=== PATIENT | female | born 1970 | race Caucasian/White ===

== ENCOUNTER 2016-12-16 08:34 | Day surgery (SDC) | payer OTHER ==
--- NOTE | 2016-12-15 17:24 | PCM.PREANE ---
Preanesthetic Assessment - ANESTHESIA/TRANSFUSION/FAMILY HX Anesthesia/Transfusion History: Prior Anesthesia Other Type of Anesthesia Reaction Comment: has problems with N/V post anesthesia Family History of Anesthesia Reaction: No Intubation History: Unknown Additional History: Hives, airway compromise with recent intra-articular injection of contrast i.e. allergy to iodinated contrast material. Symtom of rapid heart beat was with local anesthetic by dentist and most likely was epinephrine. - REVIEW OF SYSTEMS Constitutional: Reports: no symptoms, feeling ill (pain left hip) DIAGNOSTIC IMAGING MANAGER: Reports: no symptoms Respiratory: Reports: no symptoms Cardiovascular: Reports: no symptoms GI: Reports: no symptoms Other: Reports: none - PHYSICAL ASSESSMENT Height: 5 ft 3 in Weight: 160 lb ASA Class: 2 Mental Status: alert & oriented x3 Airway Class: Mallampati = 3 Dentition: Reports: normal dentition Thyro-Mental Finger Breadths: 3 Mouth Opening Finger Breadths: 3 ROM/Head Extension: full Respiratory Status: lungs clear to auscultation bilaterally Cardiovascular Status: regular rate & rhythm, normal S1, S2, no murmur, blood pressure WNL - ALLERGIES Allergies/Adverse Reactions: Allergies Allergy/AdvReac Type Severity Reaction Status Date / Time ephedrine Allergy Tachycardia Verified 07/08/16 12:56 iodine Allergy throat Verified 12/14/16 15:00 swells steri strips Allergy Rash Uncoded 12/14/16 15:00 - BLOOD Blood Available: No - ANESTHESIA PLAN Free Text/Narrative:: Scopalomine patch for post op nausea (requested). Preop Beta Blas: No Anesthesia Type Planned: general anesthesia (LMA) - ACKNOWLEDGEMENTS Pt an appropriate candidate for the planned anesthesia: Yes Alternatives and risks of anesthesia discussed w pt/guardian: Yes Pt/Guardian understands and agree with anesthesia plan: Yes PreAnesthesia Questionnaire Gastrointestinal History: Reports: Irritable bowel syndrome Musculoskeletal History: Reports: Fracture Other Musculoskeletal History: left ankle fx Neurological History: Reports: Migraines Other Neuro History: "seasonal migraines" - Past Surgical History Head Surgeries/Procedures: Reports: None Female Surgical History: Reports: Hysterectomy Musculoskeletal Surgical History: Reports: Hip replacement Other Musculoskeletal Surgeries/Procedures:: left total hip replacement, revision of left total hip - SUBSTANCE USE Smoking Status *Q: Never Smoker Recreational Drug Use History: No - HOME MEDS Home Medications: Home Meds . [No Known Home Meds] 12/14/16 [History]
[~2016-12-16 08:34] MED LIST: ceFAZolin 2 GM in Premix Bag 1 BAG IV ONE
[2016-12-16] MEDS ORDERED: Propofol 200 MG/20 ML SDV ONE (08:58)
[2016-12-16] MEDS ORDERED: fentaNYL 100 MCG/2 ML SDV ONE ×2 (08:58→11:02)
[2016-12-16] MEDS ORDERED: Lidocaine 2% 5 ML SDV ONE (08:58)
[2016-12-16] MEDS ORDERED: Midazolam 1 MG/ML 2 ML SDV ONE (08:58)
[2016-12-16] MEDS ORDERED: Scopolamine 1.5 MG Transdermal Patch TRDERM PRN (09:24)
[2016-12-16] MEDS ORDERED: Lactated Ringers 1,000 ML IV SCH (11:00)
[2016-12-16] MEDS ORDERED: fentaNYL 100 MCG/2 ML SDV IVPUSH PRN (11:07)
[2016-12-16] MEDS ORDERED: Bupivacaine 0.5% 30 ML SDV ONE (11:09)
[2016-12-16] MEDS ORDERED: Ondansetron 4 MG/2 ML SDV ONE (11:09)
[2016-12-16] MEDS ORDERED: Ketorolac 30 MG/ML SDV ONE (11:09)
[2016-12-16] MEDS ORDERED: Dexamethasone 4 MG/ML 5 ML MDV ONE (11:09)
--- NOTE | 2016-12-16 11:46 | PCM.OPNOTE ---
- General Post-Op/Procedure Note Date of Surgery/Procedure: 12/16/16 Operative Procedure(s): removal of hardware deep left femur and removal of exostosis left femur Findings: exostosis Pre Op Diagnosis: retained hardware left femur and exostosis femur Post-Op Diagnosis: same Anesthesia Technique: General LMA Primary Surgeon: Keron VALDERRAMA in mLs: 10 Complications: none Condition: Good
--- NOTE | 2016-12-16 12:22 | PCM.POSTAN ---
POST ANESTHESIA ASSESSMENT - MENTAL STATUS Mental Status: alert, oriented - RESPIRATORY Respiratory Status: respiratory rate WNL, airway patent, O2 saturation stable - CARDIOVASCULAR CV Status: pulse rate WNL, blood pressure stable - GASTROINTESTINAL GI Status: no symptoms - POST OP HYDRATION Hydration Status: adequate & stable
[2016-12-16 13:37] VITALS: BP 129/79
--- NOTE | 2016-12-16 13:38 | PCM48HPAN ---
Post Anesthesia Note - EVALUATION WITHIN 48HRS OF ANESTHETIC Vital Signs in Normal Range: Yes Patient Participated in Evaluation: Yes Respiratory Function Stable: Yes Airway Patent: Yes Cardiovascular Function Stable: Yes Hydration Status Stable: Yes Pain Control Satisfactory: Yes Nausea and Vomiting Control Satisfactory: Yes Mental Status Recovered: Yes
--- NOTE | 2016-12-16 19:22 | OR ---
SURGEON: Keron Whitehead MD DATE OF PROCEDURE: 12/16/2016 PREOPERATIVE DIAGNOSES: Retained hardware, left femur and exostosis, left femur. POSTOPERATIVE DIAGNOSES: Retained hardware, left femur and exostosis, left femur. OPERATION PERFORMED: Removal of hardware, deep, from left femur and removal of exostosis, left femur. ANESTHESIA: General with LMA. ESTIMATED BLOOD LOSS: 10 mL. SPECIMENS: Cables and exostosis bone. COMPLICATIONS: None. INDICATIONS: The patient is a 46-year-old female, who has undergone revision left total hip arthroplasty. She has an exostosis on the side of the femur as well as retained cables, which cause pain on lying on her side, which had been removed. Discussed the risks, benefits, complications of the procedure including, but not limited to infection, neurovascular injury, continued pain, and nonresolution of symptoms and she wished to proceed. I also informed her that should the cables be buried in the bone, only the outer part could be removed. PROCEDURE IN DETAIL: The patient was seen in the preop area. Operative extremity was marked with the patient. She was transferred to the operating room and placed supine on the operating table. General anesthesia was induced and LMA was placed. She received preop antibiotics with Ancef. She was placed in the right lateral decubitus position padding all bony prominences on a orozco bag. Left hip was prepped and draped in a sterile fashion using alcohol followed by ChloraPrep. A formal time-out was taken, identifying the correct procedure and extremity. Her previous incision in the distal part of about 4 inches was utilized. Dissection was carried down to subcutaneous tissues as this was localized under fluoroscopic control. The IT band was found and split, and then subperiosteal dissection on the back of the femur was made exposing the 2 cables over the femur as well as the exostosis, which was anterior lateral about 3 cm above the cables. The cables were found be buried in the bone and the lateral clip to connect them was cut with cable cutters and removed and the cable was left in the bone. The proximal one was removed, and then the distal one. Attention was made to try to pull them out, but I was unable to do so and so the remainder of the cables were left. There was no skin out to irritate the soft tissues. Superior dissection over the exostosis was made. It measured about 1.5 cm superior to inferior, 1 cm anterior to posterior. The rongeur was used to remove it and it was smoothed off leaving no pointed areas. Following this, the wound was thoroughly irrigated. IT band was closed with #1 Vicryl and fat layer was closed #1 Vicryl. Subcu tissues closed with 2-0 STRATAFIX. The skin was closed running 4-0 Monocryl with Dermabond tape. Aquacel dressing was placed. The patient was extubated in the operating room and transferred to the recovery room in stable condition. Sponge and needle counts were correct. There was no indication of complications. PLAN: The patient will be weightbearing as tolerated and activity as tolerated with aspirin for DVT prophylaxis. YOLANDA MONZON /[id number]
--- NOTE | 2016-12-17 08:36 | CR ---
EXAMINATION: Left hip HISTORY: Hardware removal COMPARISON: 07/11/2014 TECHNIQUE: Single fluoroscopic view FINDINGS/IMPRESSION: Single view of the left hip demonstrates overlying soft tissue changes with par tially removed cerclage hardware.
== END 2016-12-16 14:00 | disposition home or self-care (01) ==
LOC: MW.SDS 08:34
PROVIDERS: ATTEND Orthopaedic Surgery
PROC: 0QPC04Z Removal of Internal Fixation Device from Left Lower Femur, Open Approach (ICD-10-PCS; principal; 2016-12-16)
DX: T84.84XA Pain due to internal orthopedic prosthetic devices, implants and grafts, initial encounter (principal); M89.9 Disorder of bone, unspecified; Z88.8 Allergy status to other drugs, medicaments and biological substances; Z91.041 Radiographic dye allergy status; Z91.048 Other nonmedicinal substance allergy status; Z96.642 Presence of left artificial hip joint; Z90.710 Acquired absence of both cervix and uterus
CPT/HCPCS: 27048; 76000; A9270; J1100; J1885; J2250; J2405; J3010; J7120; 01210; 88305; 88311; J2704

== ENCOUNTER 2021-02-18 10:22 | Emergency (ER) | payer BC ==
[2021-02-18] MEDS ORDERED: Morphine 2 MG/ML SYRINGE IVPUSH ONE (10:30)
[2021-02-18] MEDS ORDERED: Aspirin 81 MG Tab.Chew PO ONE (10:30)
[2021-02-18] MEDS ORDERED: Sodium Chloride 0.9% 1,000 ML IV ONE (10:30)
[2021-02-18] MEDS ORDERED: Ondansetron 4 MG/2 ML SDV IVPUSH ONE (10:35)
[2021-02-18] MEDS ORDERED: Ondansetron 4 MG/2 ML SDV ONE (10:36)
--- NOTE | 2021-02-18 10:36 | EDM.PDOC ---
ED HPI GENERAL MEDICAL PROBLEM - General Chief Complaint: Chest Pain Stated Complaint: chest pain Time Seen by Provider: 02/18/21 10:24 Source of Information: Reports: Patient History Limitations: Reports: No Limitations - History of Present Illness INITIAL COMMENTS - FREE TEXT/NARRATIVE: HISTORY AND PHYSICAL: History of present illness: Patient is a 50-year-old female who presents to the emergency room with complaints of right-sided chest pain, fatigue, lightheaded and "my whole body feels like spagetthi" since about 0900 this morning. She states yesterday she picked up her gabapentin (for chronic back pain) from the pharmacy, took 2 tabs per usual (not a new medication to her). She slept well through the evening and woke up and felt well, she took her daytime medication and had coffee. Around 9 AM she started to have midsternal chest pain that radiates into the right side and around her breast. She feels extremely fatigued and lightheaded. Describes her body is feeling like spaghetti. She does have some associated nausea. Patient denies any fever, chills, headache, change in vision, syncope or near syncope. Denies any back pain, shortness of breath or cough. Denies any abdominal pain, vomiting, diarrhea, constipation or dysuria. Has not noted any blood in urine or stool. No concern for , history of a hysterectomy. Patient has been eating and drinking appropriately. * Patients states she had a large reddened area to right anterior ankle Review of systems: As per history of present illness and below otherwise all systems reviewed and negative. Past medical history: As per history of present illness and as reviewed below otherwise noncontributory. Surgical history: As per history of present illness and as reviewed below otherwise noncontributory. Social history: See social history for further information Family history: As per history of present illness and as reviewed below otherwise noncontributory. Physical exam: General: Well developed and well nourished. Alert and appropriate for self. Nontoxic in appearance and in no acute distress. Vital signs are stable and have been reviewed by me. Nursing notes were reviewed. HEENT: Atraumatic, normocephalic, pupils equal and reactive bilaterally, negative for conjunctival pallor or scleral icterus, mucous membranes moist, TMs normal bilaterally, throat clear, neck supple, nontender, trachea midline. No drooling or trismus noted. No meningeal signs. No hot potato voice noted. Lungs: Clear to auscultation bilaterally. No wheezes, rales, or rhonchi. Chest nontender. Normal work of breathing, no accessory muscles used. Heart: S1S2, regular rate and rhythm without overt murmur, gallops, or rubs. No JVD. No peripheral edema Abdomen: Soft, nondistended, nontender. Normoactive bowel sounds. Negative for masses or costovertebral tenderness. Skin: Intact, warm, dry. No lesions or rashes noted. Hematologic: No petechiae or purpra. Mucosa appropriate color and normal nail bed color and refill. Extremities: Atraumatic, moves all extremities per self without difficulty or deficits, negative for cords or calf pain. Uses walker for ambulation. Neurovascular unremarkable. Neuro: Awake, alert, oriented. Cranial nerves II through XII unremarkable. Cerebellum unremarkable. Motor and sensory unremarkable throughout. Exam nonfocal. Psychiatric: Mood and affect are appropriate. Normal thought process. Answering questions appropriately. Notes: *This patient was seen and evaluated during the 2019 SARS-CoV-2 novel coronavirus pandemic period. Community viral transmission is ongoing at time of this encounter and the emergency department is operating under pandemic response procedures. Chest x-ray is unremarkable. Patient's TSH is elevated today, she states she has had a history of this, took Levothyroxine but was taken off as her TSH "went back to normal". Second troponin is negative. We discussed admission versus discharged home. She states she is pain-free and would like to be discharged to home with close follow-up with cardiology. Her vital signs are stable. I have talked with the patient about today's findings, in addition to providing specific details for plan of care. Reassessment at the time of disposition demonstrates that the patient is in no acute distress. The patient is stable for discharge, counseling was provided and we discussed in great detail signs and symptoms that would prompt them to return to the Emergency Department. Medication, follow up and supportive care measures were reviewed and discussed. Voices understanding and is agreeable to plan of care. Denies any further questions or concerns at this time. Diagnostics: CBC, CMP, UA, Lipase, COVID, Troponin, EKG, CXR Therapeutics: IV fluids, Zofran, ASA, Morphine, Toradol Prescription: None Impression: Chest pain Hypothyroidism Plan: 1. You were evaluated today on an emergent basis. Your lab work is normal with the exception of your TSH (thyroid) is elevated, meaning you may need to be put back on your Thyroid medication. 2. You can alternate Tylenol and ibuprofen as needed for pain and fever management. 3. We encourage you to follow up with your primary care provider and/or corporate securities research analyst in the next few days for re-evaluation and further care/management. 4. If your symptoms should worsen, new symptoms develop or any of the signs and symptoms we discussed should arise please return to the emergency room or call 911 (if needed). Definitive disposition and diagnosis as appropriate pending reevaluation and review of above. Chest Pain Score (Numeric/FACES): 7 - Related Data Allergies Allergy/AdvReac Type Severity Reaction Status Date / Time ephedrine Allergy Tachycardia Verified 02/18/21 10:33 Iodinated Contrast Media Allergy Hives Verified 02/18/21 10:33 iodine Allergy throat Verified 02/18/21 10:33 swells steri strips Allergy Rash Uncoded 02/18/21 10:33 Home Meds: Home Meds Gabapentin [Neurontin] 600 mg PO BEDTIME 02/18/21 [History] Losartan [Cozaar] 50 mg PO DAILY 02/18/21 [History] hydroCHLOROthiazide [Hydrochlorothiazide] 25 mg PO DAILY 02/18/21 [History] Past Medical History - Past Health History Medical/Surgical History: Denies Medical/Surgical History Gastrointestinal History: Reports: Irritable Bowel Syndrome Musculoskeletal History: Reports: Fracture Other Musculoskeletal History: left ankle fx Neurological History: Reports: Migraines Other Neuro History: "seasonal migraines" - Infectious Disease History Infectious Disease History: Reports: None - Past Surgical History Head Surgeries/Procedures: Reports: None Female Surgical History: Reports: Hysterectomy Musculoskeletal Surgical History: Reports: Hip Replacement Social & Family History - Family History Family Medical History: No Pertinent Family History - Caffeine Use Caffeine Use: Reports: Coffee ED ROS GENERAL - Review of Systems Review Of Systems: Comprehensive ROS is negative, except as noted in HPI. ED EXAM, GENERAL - Physical Exam Exam: See Below (See dictation) Course - Vital Signs Last Recorded V/S: Last Vital Signs Temp 98.1 F 02/18/21 10:35 Pulse 69 02/18/21 14:45 Resp 16 02/18/21 13:45 BP 111/74 02/18/21 14:45 Pulse Ox 98 02/18/21 14:45 Orthostatic Blood Pressure [ 124/80 Standing] Orthostatic Blood Pressure [ 133/83 Sitting] Orthostatic Blood Pressure [ 141/81 Supine] - Orders/Labs/Meds Orders: Active Orders 24 hr Category Date Time Status EKG Documentation Completion [RC] STAT Care 02/18/21 10:24 Active Orthostatic Vital Signs [RC] ASDIRECTED Care 02/18/21 10:36 Active Labs: Laboratory Tests 02/18/21 02/18/21 02/18/21 Range/Units 10:30 10:30 10:30 WBC 10.08 (4.0-11.0) K/uL RBC 4.07 L (4.30-5.90) M/uL Hgb 12.4 (12.0-16.0) g/dL Hct 36.2 (36.0-46.0) % MCV 88.9 (80.0-98.0) fL MCH 30.5 (27.0-32.0) pg MCHC 34.3 (31.0-37.0) g/dL RDW Std Deviation 44.1 (28.0-62.0) fl RDW Coeff of Jovanna 14 (11.0-15.0) % Plt Count 307 (150-400) K/uL MPV 10.20 (7.40-12.00) fL Neut % (Auto) 63.7 (48.0-80.0) % Lymph % (Auto) 24.2 (16.0-40.0) % [place] % (Auto) 10.5 (0.0-15.0) % Eos % (Auto) 1.4 (0.0-7.0) % Baso % (Auto) 0.2 (0.0-1.5) % Neut # (Auto) 6.4 H (1.4-5.7) K/uL Lymph # (Auto) 2.4 (0.6-2.4) K/uL [place] # (Auto) 1.1 H (0.0-0.8) K/uL Eos # (Auto) 0.1 (0.0-0.7) K/uL Baso # (Auto) 0.0 (0.0-0.1) K/uL Nucleated RBC % 0.0 /100WBC Nucleated RBCs # 0 K/uL Sodium 136 (136-145) mmol/L Potassium 3.3 L (3.5-5.1) mmol/L Chloride 100 (98-107) mmol/L Carbon Dioxide 24.2 (21.0-32.0) mmol/L BUN 14 (7.0-18.0) mg/dL Creatinine 1.0 (0.6-1.0) mg/dL Est Cr Clr Drug Dosing 56.91 mL/min Estimated GFR (MDRD) 59.2 ml/min Glucose 92 (74-106) mg/dL Calcium 9.3 (8.5-10.1) mg/dL Total Bilirubin 0.5 (0.2-1.0) mg/dL AST 51 H (15-37) IU/L ALT 63 (14-63) IU/L Alkaline Phosphatase 127 H (46-116) U/L Troponin I < 0.050 (0.000-0.056) ng/mL Total Protein 8.2 (6.4-8.2) g/dL Albumin 3.7 (3.4-5.0) g/dL Globulin 4.5 H (2.6-4.0) g/dL Albumin/Globulin Ratio 0.8 L (0.9-1.6) Lipase (73-393) U/L TSH 3rd Generation 4.23 H (0.36-3.74) uIU/mL Urine Color Urine Appearance Urine pH (5.0-8.0) Ur Specific [place] (1.001-1.035) Urine Protein (NEGATIVE) mg/dL Urine Glucose (UA) (NEGATIVE) mg/dL Urine Ketones (NEGATIVE) mg/dL Urine Occult Blood (NEGATIVE) Urine Nitrite (NEGATIVE) Urine Bilirubin (NEGATIVE) Urine Urobilinogen (<2.0) EU/dL Ur Leukocyte Esterase (NEGATIVE) SARS-CoV-2 RNA (AZUL) (NEGATIVE) 02/18/21 02/18/21 02/18/21 Range/Units 10:30 10:56 11:45 WBC (4.0-11.0) K/uL RBC (4.30-5.90) M/uL Hgb (12.0-16.0) g/dL Hct (36.0-46.0) % MCV (80.0-98.0) fL MCH (27.0-32.0) pg MCHC (31.0-37.0) g/dL RDW Std Deviation (28.0-62.0) fl RDW Coeff of Jovanna (11.0-15.0) % Plt Count (150-400) K/uL MPV (7.40-12.00) fL Neut % (Auto) (48.0-80.0) % Lymph % (Auto) (16.0-40.0) % [place] % (Auto) (0.0-15.0) % Eos % (Auto) (0.0-7.0) % Baso % (Auto) (0.0-1.5) % Neut # (Auto) (1.4-5.7) K/uL Lymph # (Auto) (0.6-2.4) K/uL [place] # (Auto) (0.0-0.8) K/uL Eos # (Auto) (0.0-0.7) K/uL Baso # (Auto) (0.0-0.1) K/uL Nucleated RBC % /100WBC Nucleated RBCs # K/uL Sodium (136-145) mmol/L Potassium (3.5-5.1) mmol/L Chloride (98-107) mmol/L Carbon Dioxide (21.0-32.0) mmol/L BUN (7.0-18.0) mg/dL Creatinine (0.6-1.0) mg/dL Est Cr Clr Drug Dosing mL/min Estimated GFR (MDRD) ml/min Glucose (74-106) mg/dL Calcium (8.5-10.1) mg/dL Total Bilirubin (0.2-1.0) mg/dL AST (15-37) IU/L ALT (14-63) IU/L Alkaline Phosphatase (46-116) U/L Troponin I (0.000-0.056) ng/mL Total Protein (6.4-8.2) g/dL Albumin (3.4-5.0) g/dL Globulin (2.6-4.0) g/dL Albumin/Globulin Ratio (0.9-1.6) Lipase 43 L (73-393) U/L TSH 3rd Generation (0.36-3.74) uIU/mL Urine Color YELLOW Urine Appearance CLEAR Urine pH 7.5 (5.0-8.0) Ur Specific [place] 1.010 (1.001-1.035) Urine Protein NEGATIVE (NEGATIVE) mg/dL Urine Glucose (UA) NEGATIVE (NEGATIVE) mg/dL Urine Ketones NEGATIVE (NEGATIVE) mg/dL Urine Occult Blood NEGATIVE (NEGATIVE) Urine Nitrite NEGATIVE (NEGATIVE) Urine Bilirubin NEGATIVE (NEGATIVE) Urine Urobilinogen 0.2 (<2.0) EU/dL Ur Leukocyte Esterase NEGATIVE (NEGATIVE) SARS-CoV-2 RNA (AZUL) NEGATIVE (NEGATIVE) 02/18/21 Range/Units 14:52 WBC (4.0-11.0) K/uL RBC (4.30-5.90) M/uL Hgb (12.0-16.0) g/dL Hct (36.0-46.0) % MCV (80.0-98.0) fL MCH (27.0-32.0) pg MCHC (31.0-37.0) g/dL RDW Std Deviation (28.0-62.0) fl RDW Coeff of Jovanna (11.0-15.0) % Plt Count (150-400) K/uL MPV (7.40-12.00) fL Neut % (Auto) (48.0-80.0) % Lymph % (Auto) (16.0-40.0) % [place] % (Auto) (0.0-15.0) % Eos % (Auto) (0.0-7.0) % Baso % (Auto) (0.0-1.5) % Neut # (Auto) (1.4-5.7) K/uL Lymph # (Auto) (0.6-2.4) K/uL [place] # (Auto) (0.0-0.8) K/uL Eos # (Auto) (0.0-0.7) K/uL Baso # (Auto) (0.0-0.1) K/uL Nucleated RBC % /100WBC Nucleated RBCs # K/uL Sodium (136-145) mmol/L Potassium (3.5-5.1) mmol/L Chloride (98-107) mmol/L Carbon Dioxide (21.0-32.0) mmol/L BUN (7.0-18.0) mg/dL Creatinine (0.6-1.0) mg/dL Est Cr Clr Drug Dosing mL/min Estimated GFR (MDRD) ml/min Glucose (74-106) mg/dL Calcium (8.5-10.1) mg/dL Total Bilirubin (0.2-1.0) mg/dL AST (15-37) IU/L ALT (14-63) IU/L Alkaline Phosphatase (46-116) U/L Troponin I < 0.050 (0.000-0.056) ng/mL Total Protein (6.4-8.2) g/dL Albumin (3.4-5.0) g/dL Globulin (2.6-4.0) g/dL Albumin/Globulin Ratio (0.9-1.6) Lipase (73-393) U/L TSH 3rd Generation (0.36-3.74) uIU/mL Urine Color Urine Appearance Urine pH (5.0-8.0) Ur Specific [place] (1.001-1.035) Urine Protein (NEGATIVE) mg/dL Urine Glucose (UA) (NEGATIVE) mg/dL Urine Ketones (NEGATIVE) mg/dL Urine Occult Blood (NEGATIVE) Urine Nitrite (NEGATIVE) Urine Bilirubin (NEGATIVE) Urine Urobilinogen (<2.0) EU/dL Ur Leukocyte Esterase (NEGATIVE) SARS-CoV-2 RNA (AZUL) (NEGATIVE) Meds: Medications Discontinued Medications Generic Name Dose Route Start Last Admin Trade Name Freq PRN Reason Stop Dose Admin Aspirin 324 mg 02/18/21 10:30 02/18/21 10:40 Aspirin 81 Mg Tab.Chew PO 02/18/21 10:31 324 mg ONETIME ONE Administration Sodium Chloride 1,000 mls @ 999 mls/hr 02/18/21 10:30 02/18/21 10:40 Normal Saline IV 02/18/21 11:30 999 mls/hr STAT ONE Administration Ketorolac Tromethamine 30 mg 02/18/21 11:18 02/18/21 11:40 Ketorolac 30 Mg/Ml Sdv IVPUSH 02/18/21 11:19 30 mg ONETIME ONE Administration Morphine Sulfate 2 mg 02/18/21 10:30 02/18/21 10:39 Morphine 2 Mg/Ml Syringe IVPUSH 02/18/21 10:31 2 mg ONETIME ONE Administration Ondansetron HCl 4 mg 02/18/21 10:35 02/18/21 10:40 Ondansetron 4 Mg/2 Ml Sdv IVPUSH 02/18/21 10:36 4 mg ONETIME ONE Administration Ondansetron HCl Confirm 02/18/21 10:36 02/18/21 10:38 Ondansetron 4 Mg/2 Ml Sdv Administered 02/18/21 10:37 Not Given Dose 4 mg .ROUTE .STK-MED ONE Departure - Departure Time of Disposition: 15:30 Disposition: Home, Self-Care 01 Clinical Impression: Hypothyroid Qualifiers: Hypothyroidism type: unspecified Qualified Code(s): E03.9 - Hypothyroidism, unspecified Chest pain Qualifiers: Chest pain type: unspecified Qualified Code(s): R07.9 - Chest pain, unspecified Instructions: Nonspecific Chest Pain, Adult, [id number] Referrals: PCP,None [Primary Care Provider] - Forms: ED Department Discharge Additional Instructions: The following information is given to patients seen in the emergency department who are being discharged to home. This information is to outline your options for follow-up care. We provide all patients seen in our emergency department with a follow-up referral. The need for follow-up, as well as the timing and circumstances, are variable depending upon the specifics of your emergency department visit. If you don't have a primary care physician on staff, we will provide you with a referral. We always advise you to contact your personal physician following an emergency department visit to inform them of the circumstance of the visit and for follow-up with them and/or the need for any referrals to a consulting specialist. The emergency department will also refer you to a specialist when appropriate. This referral assures that you have the opportunity for follow-up care with a specialist. All of these measure are taken in an effort to provide you with optimal care, which includes your follow-up. Under all circumstances we always encourage you to contact your private physician who remains a resource for coordinating your care. When calling for fo llow-up care, please make the office aware that this follow-up is from your recent emergency room visit. If for any reason you are refused follow-up, please contact the [facility] Emergency Department at and asked to speak to the emergency department charge nurse. [facility] [address] [place] [address] [facility] [address] [place] [address] Thank you for choosing the [facility] emergency department in [place] for your medical needs today. It was a pleasure caring for you. Today you were seen in the emergency department for chest pain. 1. You were evaluated today on an emergent basis. Your lab work is normal with the exception of your TSH (thyroid) is elevated, meaning you may need to be put back on your Thyroid medication. 2. You can alternate Tylenol and ibuprofen as needed for pain and fever management. 3. We encourage you to follow up with your primary care provider and/or corporate securities research analyst in the next few days for re-evaluation and further care/management. 4. If your symptoms should worsen, new symptoms develop or any of the signs and symptoms we discussed should arise please return to the emergency room or call 911 (if needed). Sepsis Event Note (ED) - Focused Exam Vital Signs: Vital Signs Temp Pulse Resp BP Pulse Ox 02/18/21 14:45 69 111/74 98 02/18/21 14:15 58 L 126/82 96 02/18/21 13:45 60 16 144/91 H 97 02/18/21 13:15 59 L 16 130/76 97 02/18/21 12:45 56 L 16 147/92 H 97 02/18/21 12:15 53 L 16 126/83 98 02/18/21 10:35 98.1 F 74 16 142/70 H 98 - My Orders Last 24 Hours: My Active Orders 02/18/21 10:24 EKG Documentation Completion [RC] STAT 02/18/21 10:36 Orthostatic Vital Signs [RC] ASDIRECTED - Assessment/Plan Last 24 Hours: My Active Orders 02/18/21 10:24 EKG Documentation Completion [RC] STAT 02/18/21 10:36 Orthostatic Vital Signs [RC] ASDIRECTED
[2021-02-18 11:11] LABS: BLOOD UREA NITROGEN,BUN 14 mg/dL (7.0-18.0); CARBON DIOXIDE,CO2 24.2 mmol/L (21.0-32.0); CHLORIDE,CL 100 mmol/L (98-107); GLUCOSE RANDOM 92 mg/dL (74-106); POTASSIUM,K 3.3 mmol/L (3.5-5.1); SODIUM,NA 136 mmol/L (136-145)
[2021-02-18] MEDS ORDERED: Ketorolac 30 MG/ML SDV IVPUSH ONE (11:18)
--- NOTE | 2021-02-18 12:55 | PCM.SN.2 ---
- Free Text/Narrative Note: EKG: As interpreted by ER physician: Kye: Nonspecific ST-T wave abnormalities Normal axis No evidence of ST elevation CA Normal sinus rhythm heart rate of 76
--- NOTE | 2021-02-18 13:48 | CR ---
INDICATION: Pain and shortness of breath. TECHNIQUE: Single AP view of the chest. COMPARISON: None. FINDINGS: External monitoring leads are seen overlying the patient. Heart and mediastinum are normal. Lungs are clear. No consolidations or pleural effusions. Trachea is midline. No pneumothorax. IMPRESSION: No evidence of acute disease. Dictated by Fidel Nolasco MD @ 02/18/2021 1:46:[address] Fidel Nolasco @ Feb 18 2021 1:46PM
[2021-02-18 15:06] VITALS: BP 111/74; PULSE 69
== END 2021-02-18 15:41 | disposition home or self-care (01) ==
LOC: MW.ED 10:22
DX: R07.9 Chest pain, unspecified (principal); E03.9 Hypothyroidism, unspecified; Z91.041 Radiographic dye allergy status; Z88.8 Allergy status to other drugs, medicaments and biological substances; Z91.048 Other nonmedicinal substance allergy status; Z79.899 Other long term (current) drug therapy; Z20.822 Contact with and (suspected) exposure to COVID-19
CPT/HCPCS: 36415; 71045; 80053; 81003; 83690; 84443; 84484; 85025; 87635; 93005; 96374; 96375; 99285; A9270; J1885; J2270; J2405; J7030; 93010; 99284; U0002

== ENCOUNTER 2021-10-05 07:00 | Day surgery (SDC) | payer BC ==
[2021-10-05] MEDS ORDERED: Ondansetron 4 MG/2 ML SDV ONE (07:18)
[2021-10-05] MEDS ORDERED: fentaNYL 100 MCG/2 ML SDV ONE (07:19)
[2021-10-05] MEDS ORDERED: Lidocaine 2% 5 ML SDV ONE (07:19)
[2021-10-05] MEDS ORDERED: Propofol 200 MG/20 ML SDV ONE (07:19)
[2021-10-05] MEDS ORDERED: Lactated Ringers 1,000 ML IV SCH ×2 (07:30→09:30)
--- NOTE | 2021-10-05 08:56 | PCM.PREANE ---
Preanesthetic Assessment - Anesthesia/Transfusion/Family Hx Anesthesia History: Prior Anesthesia Reaction Other Type of Anesthesia Reaction Comment: has problems with N/V post anesthesia Transfusion History: No Prior Transfusion(s) - Review of Systems General: No Symptoms Pulmonary: No Symptoms Cardiovascular: No Symptoms Gastrointestinal: No Symptoms Neurological: No Symptoms Other: Reports: None - Physical Assessment NPO Status Date: 10/05/21 NPO Status Time: 00:00 Vital Signs: Last Vital Signs Temp 97.3 F 10/05/21 07:07 Pulse 63 10/05/21 07:07 Resp 16 10/05/21 07:07 BP 121/72 10/05/21 07:07 Pulse Ox 100 10/05/21 07:07 Height: 5 ft 2 in Weight: 186 lb ASA Class: 2 Mental Status: Alert & Oriented x3 Airway Class: Mallampati = 1 Dentition: Reports: Normal Dentition ROM/Head Extension: Full Lungs: Clear to Auscultation, Normal Respiratory Effort Cardiovascular: Regular Rate, Regular Rhythm - Allergies Allergies/Adverse Reactions: Allergies Allergy/AdvReac Type Severity Reaction Status Date / Time ephedrine Allergy Tachycardia Verified 09/29/21 10:17 iodine Allergy throat Verified 09/29/21 10:17 swells steri strips Allergy Rash Uncoded 02/18/21 10:33 - Acknowledgements Anesthesia Type Planned: General Anesthesia Pt an Appropriate Candidate for the Planned Anesthesia: Yes Alternatives and Risks of Anesthesia Discussed w Pt/Guardian: Yes Pt/Guardian Understands and Agrees with Anesthesia Plan: Yes PreAnesthesia Questionnaire - Past Health History Medical/Surgical History: Denies Medical/Surgical History HEENT History: Reports: Allergic Rhinitis, Other (See Below) Other HEENT History: wears glasses Cardiovascular History: Reports: Hypertension, Other (See Below) Other Cardiovascular History: palpatations Respiratory History: Reports: None Gastrointestinal History: Reports: GERD, Irritable Bowel Syndrome, PUD Genitourinary History: Reports: Pyelonephritis 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: Musculoskeletal History: Reports: Arthritis, Back Pain, Chronic, Fracture Other Musculoskeletal History: DDD, ankle fx Neurological History: Reports: Migraines Psychiatric History: Reports: None Endocrine/Metabolic History: Reports: Obesity/BMI 30+ Hematologic History: Reports: None Immunologic History: Reports: None Oncologic (Cancer) History: Reports: None Dermatologic History: Reports: None - Infectious Disease History Infectious Disease History: Reports: None - Past Surgical History Head Surgeries/Procedures: Reports: None HEENT Surgical History: Reports: None Cardiovascular Surgical History: Reports: None Respiratory Surgical History: Reports: None GI Surgical History: Reports: Cholecystectomy, Colonoscopy, EGD Female Surgical History: Reports: Hysterectomy, Tubal Ligation Endocrine Surgical History: Reports: None Neurological Surgical History: Reports: None Musculoskeletal Surgical History: Reports: Hip Replacement Other Musculoskeletal Surgeries/Procedures:: left total hip replacement, revision of left total hip, sx for fx ankle Oncologic Surgical History: Reports: None Dermatological Surgical History: Reports: None - SUBSTANCE USE Tobacco Use Status *Q: Never Tobacco User - HOME MEDS Home Medications: Home Meds Losartan [Cozaar] 50 mg PO DAILY 02/18/21 [History] hydroCHLOROthiazide [Hydrochlorothiazide] 25 mg PO DAILY 02/18/21 [History] Famotidine [Acid China Painter] 2 tab PO ASDIRECTED PRN 09/29/21 [History] Loratadine [Claritin] 1 tab PO ASDIRECTED PRN 09/29/21 [History] - CURRENT (IN HOUSE) MEDS Current Meds: Current Medications Lactated Ringer's (Ringers, Lactated) 1,000 mls @ 125 mls/hr IV ASDIRECTED KATARINA Last Admin: 10/05/21 07:18 Dose: 125 mls/hr Documented by: Discontinued Medications Fentanyl (Fentanyl 100 Mcg/2 Ml Sdv) Confirm Administered Dose 100 mcg .ROUTE .STK-MED ONE Stop: 10/05/21 07:20 Lidocaine (Lidocaine 2% 5 Ml Sdv) Confirm Administered Dose 5 ml .ROUTE .STK-MED ONE Stop: 10/05/21 07:20 Ondansetron HCl (Ondansetron 4 Mg/2 Ml Sdv) Confirm Administered Dose 4 mg .ROUTE .STK-MED ONE Stop: 10/05/21 07:19 Propofol (Propofol 200 Mg/20 Ml Sdv) Confirm Administered Dose 200 mg .ROUTE .STK-MED ONE Stop: 10/05/21 07:20
[2021-10-05] MEDS ORDERED: ePHEDrine 50 MG/ML SDV ONE (09:12)
--- NOTE | 2021-10-05 09:32 | PCM.OPNOTE ---
- General Post-Op/Procedure Note Date of Surgery/Procedure: 10/05/21 Operative Procedure(s): Esophagogastroduodenoscopy with gastric and distal esophageal biopsies Pre Op Diagnosis: Dysphagia. Post-Op Diagnosis: Mild to moderate chronic gastritis. Distal esophagitis. Anesthesia Technique: MAC (ASA III) Primary Surgeon: Matt Malloy Condition: Good Free Text/Narrative:: DICTATION [id number] CPT CODE 21199
--- NOTE | 2021-10-05 09:42 | PCM.POSTAN ---
POST ANESTHESIA ASSESSMENT - MENTAL STATUS Mental Status: Alert, Oriented - VITAL SIGNS Vital Signs: Last Vital Signs Temp 97.0 F 10/05/21 09:26 Pulse 80 10/05/21 09:36 Resp 17 10/05/21 09:36 BP 110/70 10/05/21 09:36 Pulse Ox 97 10/05/21 09:36 - RESPIRATORY Respiratory Status: Respiratory Rate WNL, Airway Patent, O2 Saturation Stable - CARDIOVASCULAR CV Status: Pulse Rate WNL, Blood Pressure Stable - GASTROINTESTINAL GI Status: No Symptoms - POST OP HYDRATION Hydration Status: Adequate & Stable
[2021-10-05 09:51] VITALS: BP 107/68; PULSE 63
--- NOTE | 2021-10-05 11:29 | OR ---
SURGEON: Matt Malloy M.D. DATE OF PROCEDURE: 10/05/2021 OPERATION PERFORMED: Esophagogastroduodenoscopy with gastric and esophageal biopsies. PRIMARY SURGEON: Matt Malloy M.D. ANESTHESIA: MAC. ASA CLASSIFICATION: III. PREOPERATIVE DIAGNOSIS: Dysphagia. POSTOPERATIVE DIAGNOSES: 1. [id number] chronic gastritis. 2. Distal esophagitis without ulceration. DESCRIPTION OF PROCEDURE: The patient was taken to the endoscopy room and positioned on the endoscopy table in the supine position. Time-out was called for appropriate identification of the patient and procedure. Monitored anesthesia care was provided. The bite block was placed between the patient's teeth. The gastroscope was inserted through the bite block into the oropharynx and advanced without difficulty through the esophagus and stomach into the duodenum. There was no obvious stricture noted as we traversed the esophagus. Once the gastroscope was in the duodenum, no acute ulcerations or bleeding was noted. The gastroscope was withdrawn to the distal stomach, which did show mild-to- moderate gastritis. Antral biopsies were obtained to look for the presence of Helicobacter pylori. The gastroscope was then retroflexed to visualize the proximal stomach. No ulcerations were noted proximally. No polyps were seen. There was no obvious hiatal hernia noted in a retroflexed view. The gastroscope was then straightened after antral biopsies had been obtained, and the greater and lesser curvatures were very well visualized. No tumors or polyps were seen. GE junction was well defined, although there certainly were some mild inflammatory changes without ulceration. Biopsies of the distal esophagus were obtained. The esophagus itself demonstrated good contractility. No mid or proximal lesions were identified. The vocal cords were briefly visualized as the gastroscope was withdrawn. No vocal cord lesions were identified. The gastroscope was then removed with the patient having tolerated the procedure well. She was then taken to recovery room in stable condition. AMANUEL / NICOLÁS /[id number]
== END 2021-10-05 10:15 | disposition home or self-care (01) ==
LOC: MW.SDS 07:00
PROVIDERS: ATTEND Surgery
DX: K31.89 Other diseases of stomach and duodenum (principal); K29.50 Unspecified chronic gastritis without bleeding; K20.90 Esophagitis, unspecified without bleeding; I10 Essential (primary) hypertension; E66.9 Obesity, unspecified; K21.9 Gastro-esophageal reflux disease without esophagitis; J30.9 Allergic rhinitis, unspecified; Z98.890 Other specified postprocedural states; Z88.8 Allergy status to other drugs, medicaments and biological substances; Z79.899 Other long term (current) drug therapy; Z68.34 Body mass index [BMI] 34.0-34.9, adult
CPT/HCPCS: 43239; J2405; J2704; J3010; J7120; 00731

== ENCOUNTER 2024-06-14 11:42 | Emergency (ER) | payer BC ==
[2024-06-14] MEDS ORDERED: Sodium Chloride 0.9% 2.5 ML Syringe FLUSH PRN (12:01)
[2024-06-14] MEDS ORDERED: Sodium Chloride 0.9% 10 ML Syringe FLUSH PRN (12:01)
[2024-06-14 12:25] LABS: BASOPHILS ABSOLUTE AUTO 0.02 K/uL (0.00-0.20); BASOPHILS PERCENT AUTO 0.2 % (0.0-1.0); EOSINOPHILS ABSOLUTE AUTO 0.09 K/uL (0.00-0.45); EOSINOPHILS PERCENT AUTO 1.1 % (0.0-6.0); HEMATOCRIT 40.8 % (37.0-47.0); HEMOGLOBIN 14.1 g/dL (12.0-16.0); IMMATURE GRAN ABSOLUTE AUTO 0.02 K/uL (0.00-0.05); IMMATURE GRAN PERCENT AUTO 0.2 % (0.0-0.4); LYMPHOCYTES ABSOLUTE AUTO 1.15 K/uL (1.00-4.80); LYMPHOCYTES PERCENT AUTO 14.1 % (24.0-44.0); MEAN CORPUSCULAR HEMOGLOBIN 29.9 pg (28.0-32.0); MEAN CORPUSCULAR HGB CONC 34.6 g/dL (32.0-36.0); MEAN CORPUSCULAR VOLUME 86.4 fL (83.0-99.0); MEAN PLATELET VOLUME 10.1 fL (9.4-12.3); MONOCYTES ABSOLUTE AUTO 0.98 K/uL (0.00-0.80); NEUTROPHILS ABSOLUTE AUTO 5.92 K/uL (1.80-7.70); NEUTROPHILS PERCENT AUTO 72.4 % (41.0-71.0); PLATELET COUNT,PLT 290 K/uL (150-400); RED BLOOD CELL COUNT 4.72 M/uL (4.10-5.30); WHITE BLOOD CELL COUNT,WBC 8.18 K/uL (3.9-11.3)
[2024-06-14] MEDS: Sodium Chloride 0.9% 1,000 ML IV ONE ×2 (12:33→13:59)
[2024-06-14 12:55] LABS: A/G RATIO 0.8 (0.9-1.6); ALANINE AMINOTRANSFERASE,ALT 37 IU/L (14-63); ALBUMIN 3.6 g/dL (3.4-5.0); ALKALINE PHOSPHATASE 179 U/L (46-116); ASPARTATE AMNIOTRANSFERASE,AST 34 IU/L (15-37); BILIRUBIN TOTAL 0.4 mg/dL (0.2-1.0); BLOOD UREA NITROGEN,BUN 17 mg/dL (7.0-18.0); CALCIUM 9.4 mg/dL (8.5-10.1); CARBON DIOXIDE,CO2 29.1 mmol/L (21.0-32.0); CHLORIDE,CL 95 mmol/L (98-107); CREATININE 1.4 mg/dL (0.6-1.0); GLUCOSE RANDOM 109 mg/dL (74-106); POTASSIUM,K 2.9 mmol/L (3.5-5.1); PROTEIN TOTAL,TP 8.1 g/dL (6.4-8.2); SODIUM,NA 133 mmol/L (136-145)
[2024-06-14 12:58] LABS: ESTIMATED GFR 46 mL/min (>60)
[2024-06-14 13:30] LABS: APPEARANCE,URINE CLEAR; BILIRUBIN,URINE NEGATIVE (NEGATIVE); COLOR,URINE YELLOW; GLUCOSE,URINE NEGATIVE (NEGATIVE); KETONES,URINE NEGATIVE (NEGATIVE); LEUKOCYTE ESTERASE,URINE NEGATIVE (NEGATIVE); NITRITE,URINE NEGATIVE (NEGATIVE); OCCULT BLOOD,URINE NEGATIVE (NEGATIVE); PH,URINE 7.5 (5.0-8.0); PROTEIN,URINE NEGATIVE (NEGATIVE); UROBILINOGEN,URINE 0.2 EU/dL (<2.0)
[2024-06-14 13:30] LABS: CORONAVIRUS COVID-19 NAA POSITIVE (NEGATIVE); INFLUENZA A NAA NEGATIVE (NEGATIVE); INFLUENZA B NAA NEGATIVE (NEGATIVE)
[2024-06-14] MEDS: Potassium Chloride 20 MEQ Tab.ER PO ONE (13:48)
[2024-06-14 15:24] VITALS: BP 111/69; PULSE 59
== END 2024-06-14 14:55 | disposition home or self-care (01) ==
LOC: MW.ED 11:42
DX: U07.1 COVID-19 (principal); R55 Syncope and collapse; E86.0 Dehydration; E87.6 Hypokalemia; I10 Essential (primary) hypertension; E66.9 Obesity, unspecified; Z91.041 Radiographic dye allergy status; Z88.8 Allergy status to other drugs, medicaments and biological substances; Z79.899 Other long term (current) drug therapy; Z90.49 Acquired absence of other specified parts of digestive tract; Z90.710 Acquired absence of both cervix and uterus; Z68.33 Body mass index [BMI] 33.0-33.9, adult; Z75.8 Other problems related to medical facilities and other health care
CPT/HCPCS: 0240U; 36415; 80053; 81003; 83735; 84484; 85025; 93005; 99284; A9270; J7030; 93010; 99285

== ENCOUNTER 2025-05-23 19:02 | Emergency (ER) | payer BC ==
[2025-05-23] MEDS: Diphtheria,Pertussis(Acell),Tetanus Vaccine 0.5 ML Syringe IM ONE (19:48)
[2025-05-23] MEDS: Ondansetron 4 MG Tab.DIS PO ONE (19:48)
[2025-05-23] MEDS: Acetaminophen/HYDROcodone 325-5 MG Tab PO ONE (19:48)
[2025-05-24 00:18] VITALS: BP 149/86; PULSE 71
== END 2025-05-23 20:53 | disposition home or self-care (01) ==
LOC: MW.ED 19:02
DX: S42.252A Displaced fracture of greater tuberosity of left humerus, initial encounter for closed fracture (principal); I10 Essential (primary) hypertension; E66.9 Obesity, unspecified; M19.90 Unspecified osteoarthritis, unspecified site; Z23 Encounter for immunization; Z75.3 Unavailability and inaccessibility of health-care facilities; Z79.899 Other long term (current) drug therapy; Z88.8 Allergy status to other drugs, medicaments and biological substances; Z91.048 Other nonmedicinal substance allergy status; Z90.49 Acquired absence of other specified parts of digestive tract; Z90.710 Acquired absence of both cervix and uterus; Z68.35 Body mass index [BMI] 35.0-35.9, adult; W10.9XXA Fall (on) (from) unspecified stairs and steps, initial encounter
CPT/HCPCS: 73030-26-LT; 73030-LT; 73562-26-LT; 73562-LT; 90471; 90715; 99283-25; A9270-GY

== ENCOUNTER 2025-06-07 10:57 | Day surgery (SDC) | payer BC ==
[~2025-06-07 10:57] MED LIST changes: +Albuterol 0.083% 2.5 MG/3 ML Neb Soln NEB PRN; +Ketamine HCL/NACL, ISO-OSM 50 MG/5 ML Syringe ONE; +Midazolam 1 MG/ML 2 ML SDV ONE; +Naloxone 0.4 MG/ML SDV IVPUSH PRN; +Ondansetron 4 MG/2 ML SDV ONE; +Propofol 200 MG/20 ML SDV ONE; +Ropivacaine 0.5% 5 MG/ML 30 ML SDV ONE; +Scopalamine 1mg/3day Transdermal Patch TOP ONE; -ceFAZolin 2 GM in Premix Bag 1 BAG IV ONE; +fentaNYL 250 MCG/5 ML SDV ONE; +fentaNYL 50 MCG/ML SDV IVPUSH PRN; +propofoL 500 MG/50 ML 50 ML ONE
[2025-06-07] MEDS: Lactated Ringers 1,000 ML IV SCH (11:00)
[2025-06-07] MEDS ORDERED: ceFAZolin 2 GM in Water For Injection, Sterile 20 ML IVPUSH ONE (12:00)
[2025-06-07] MEDS ORDERED: Dexamethasone 4 MG/ML 5 ML MDV ONE (12:45)
[2025-06-07] MEDS ORDERED: propofoL 500 MG/50 ML 50 ML ONE (12:58)
[2025-06-07] MEDS ORDERED: Ketorolac 30 MG/ML SDV ONE (14:20)
[2025-06-07] MEDS: Ondansetron 4 MG/2 ML SDV IVPUSH PRN (14:51)
[2025-06-07] MEDS ORDERED: droPERidol 2.5 MG/ML SDV IVPUSH ONE (14:52)
[2025-06-07 17:01] VITALS: BP 125/76; PULSE 65
== END 2025-06-07 16:25 | disposition home or self-care (01) ==
LOC: MW.SDS 10:57
PROVIDERS: ATTEND Orthopaedic Surgery
DX: S42.252P Displaced fracture of greater tuberosity of left humerus, subsequent encounter for fracture with malunion (principal); X58.XXXD Exposure to other specified factors, subsequent encounter
CPT/HCPCS: 23630; 76000; C1713; C1776; J0690; J1100; J1308; J1596; J1790; J1885; J2250; J2405; J2704; J2765; J2795; J3010; J7120; J7999; 01630; 64415; J2371; J3490